=== PATIENT | male | born 1955 | race Caucasian/White ===

== ENCOUNTER 2018-05-22 15:44 | Outpatient (REF) | payer BC, SELFPAY ==
[2018-05-22 20:52] LABS: Anion Gap 10.8 mmol/L (3-11); BUN 16 mg/dL (7-18); CO2 27.2 mmol/L (21.0-32.0); CREATININE 0.79 mg/dL (0.70-1.30); Calcium 8.8 mg/dL (8.5-10.1); Chloride 103 mmol/L (98-107); Glucose 85 mg/dL (70-100); Sodium 141 mmol/L (136-145)
[2018-05-24 10:02] LABS: PSA, Screening 0.5 ng/ml (0-4.5)
== END 2018-05-22 16:04 ==
LOC: NCHCN 15:44
PROVIDERS: PCP Family Medicine; Visit Provider Family Medicine
DX: Z00.00 Encounter for general adult medical examination without abnormal findings (principal); I10 Essential (primary) hypertension
CPT/HCPCS: 80048; 84153

== ENCOUNTER 2018-11-21 19:46 | Outpatient (REF) | payer MEDICARE, BC, SELFPAY ==
[2018-11-21 20:44] LABS: Anion Gap 8.6 mmol/L (3-11); BUN 14 mg/dL (7-18); CO2 29.4 mmol/L (21.0-32.0); CREATININE 0.82 mg/dL (0.70-1.30); Calcium 9.4 mg/dL (8.5-10.1); Calculated LDL 168 mg/dL; Chloride 102 mmol/L (98-107); Cholesterol 233 mg/dL (50-200); Glucose 90 mg/dL (70-100); HDL Cholesterol 47 mg/dL (40-60); Potassium 4.8 mmol/L (3.5-5.1); Sodium 140 mmol/L (136-145); Triglyceride 90 mg/dL (30-150)
== END 2018-11-21 20:06 ==
LOC: NCHCN 19:46
PROVIDERS: PCP Family Medicine; Visit Provider Physician Assistant Medical
DX: I10 Essential (primary) hypertension (principal)
CPT/HCPCS: 80048; 80061

== ENCOUNTER 2020-12-25 11:42 | Outpatient (REF) | payer MEDICARE, BC, SELFPAY ==
[2020-12-25 14:54] LABS: ALT 39 U/L (16-63); AST 19 U/L (15-37); Albumin 4.1 g/dL (3.4-5.0); Alkaline Phosphatase 59 U/L (46-116); Anion Gap 9.8 mmol/L (3-11); BUN 16 mg/dL (7-18); CO2 27.2 mmol/L (21.0-32.0); CREATININE 0.8 mg/dL (0.70-1.30); Calcium 8.7 mg/dL (8.5-10.1); Calculated LDL 142 mg/dL (<100); Chloride 103 mmol/L (98-107); Cholesterol 209 mg/dL (<200); Glucose 90 mg/dL (74-106); HDL Cholesterol 53 mg/dL (40-60); Potassium 3.7 mmol/L (3.5-5.1); Sodium 140 mmol/L (136-145); Total Protein 6.8 g/dL (6.4-8.2); Triglyceride 74 mg/dL (<150)
[2020-12-25 23:32] LABS: PSA, Screening 0.5 ng/mL (0.0-4.5)
== END 2020-12-25 11:43 | disposition home or self-care (01) ==
LOC: NCHCN 11:42
PROVIDERS: PCP Family Medicine; Visit Provider Family Medicine
DX: I10 Essential (primary) hypertension (principal); Z12.5 Encounter for screening for malignant neoplasm of prostate; Z80.42 Family history of malignant neoplasm of prostate
CPT/HCPCS: 80053; 80061; 84153

== ENCOUNTER → 2022-08-04 11:15 | Outpatient (BNVA) | payer MEDICARE, BC, SELFPAY | PROVIDERS: PCP Family Medicine; Referring Provider Family Medicine; Visit Provider Physical Therapy Assistant | DX: Z12.11 Encounter for screening for malignant neoplasm of colon (principal); Z80.0 Family history of malignant neoplasm of digestive organs ==

== ENCOUNTER 2022-08-15 08:17 | Day surgery (SDC) | payer MEDICARE, BC, SELFPAY ==
--- NOTE | 2022-08-14 18:22 | W.PM.DSUDISC ---
Date of service: 08/15/22 Time of Service: 10:41 Discharge Plan Disposition Patient Disposition: Home Condition: Good Discharge Details Reason For Visit: Screening colonoscopy Attending Provider: Kenn Diaz Primary Care Provider: Farida Schuler V Home Meds and New Rx's Prescriptions: Continued losartan-hydrochlorothiazide 50-12.5 mg tablet 1 tab PO DAILY aspirin [Adult Aspirin Regimen] 81 mg tablet,delayed release (DR/EC) 81 mg PO DAILY saw palmetto 160 mg capsule 160 mg PO BID Rx Instructions: give with meal/snack goimzjdzdoyv-ksusqxnm-lqnfsp Tablet 1 tab PO DAILY rosuvastatin 5 mg tablet 5 mg PO DAILY Discontinued bisacodyl [Dulcolax (bisacodyl)] 5 mg tablet,delayed release (DR/EC) 5 mg PO ONCE Qty: 4 0RF Rx Instructions: Take per colonoscopy instructions provided by ordering providers office polyethylene glycol 3350 17 gram/dose powder 17 g PO ONCE Qty: 238 0RF Rx Instructions: Take per colonoscopy instructions provided by ordering providers office Discharge Instructions Instructions: Colorectal Polyps (GEN) Additional Instructions: Logan, we were able to complete your colonoscopy today without any difficulty. I did find a rectal polyp. It was quite small. I removed it completely. I will notify you with my final recommendations when I have the pathology report. 1. If tolerated, consume a soft, low fiber diet for 1-2 days. 2. Do not drive, drink alcohol, operate machinery, make critical decisions, or do activities that require coordination or balance for 24 hours. 3. Because air was put into your colon during the procedure, expelling air from your rectum (passing gas or farting) is normal. 4. You may not have a bowel movement for 1-3 days because of the colonoscopy prep. This is normal. 5. Go directly to the emergency room if you notice any of the following: Develop chills (warm to touch), or if you have a thermometer and your temperature is above 101 Difficulty breathing or difficultly swallowing Persistent vomiting Severe abdominal pain, other than gas cramps Severe chest pain Black, tarry stools Any bleeding ? exceeding one tablespoon 6. Call your physician if the site where your intravenous was started becomes red, swollen, painful, and warm to touch. 7. Your physician has reviewed your pre-procedure medications. Please continue to take those medications as previously ordered. You will be given specific information/education regarding any changes to your medications before leaving. Activity:: Activity as Tolerated Diet:: As Tolerated Discharge Orders Discharge Orders: Discharge Order (Routine); Ordered 08/14/22 Ordered By: Kenn Diaz DS: Diagnosis Discharge Diagnosis (1) Screening for colon cancer: Status: Acute Asessment and Plan: Follow-up on polypectomy results; with family history, recommend screening at the very least at 5-year intervals
--- NOTE | 2022-08-14 18:24 | W.COLOREPORT ---
Date of service: 08/15/22 Time of Service: 10:42 Colonoscopy Report Date of procedure: 08/15/22 Pre-op diagnosis general: screening colonoscopy Post-op diagnosis procedure note: other (Rectal polyp) Procedure: Colonoscopy with polypectomy Surgeon: Kenn Diaz Anesthesia Type: General:No Airway Estimated blood loss (mL): 5 Pathology: other (Rectal polyp) Complications: None Disposition: same day Indications: Logan is 67 years old. He needs his next screening colonoscopy Prep: Miralax/Dulcolax Procedure Start Time: 10:21 Procedure End Time: 10:38 Retraction Time: 8 Findings: Rectal polyp Procedure Description: After the induction of monitored anesthetic care, and with the patient in left lateral decubitus position, I began by performing an external anorectal exam.? Perineum and skin were normal, as was the anal verge.? There was no evidence of external hemorrhoids.? Next, I performed a digital rectal exam.? I did not appreciate any abnormal findings.? Next, I advanced a colonoscope into the rectal vault.? I performed retroflexion.? This appeared normal.? I did see one 0.25 cm sessile polyp within the rectum. I removed it with cold forcep polypectomy. There was minimal bleeding. Using insufflation, I then advanced the colonoscope beyond the rectal folds and into the sigmoid colon before advancing towards the cecum.? The quality of the prep was excellent.? The scope was noted to be in the cecum by identification of the ileocecal valve and appendiceal orifice.? I then began withdrawing the colonoscope using repeated irrigation as necessary for full evaluation of the colonic mucosa. ?Once the scope was withdrawn to the level of the rectum, great care was taken to examine portions of the rectal folds.? Finally, the scope was withdrawn and the patient was brought to the same-day surgery recovery unit as the anesthetic wore off. ?The findings and instructions were shared with the patient prior to discharge.
[2022-08-15 08:36] VITALS: BP 158/91; PULSE 72; RESP 16; TEMP 36.4; O2SAT 97
[2022-08-15] MEDS: Lactated Ringers 1,000 ML 80 ML IV (08:54)
--- NOTE | 2022-08-15 10:08 | W.ANESPRE ---
General Info Date of Service Date Performed: 08/15/22 Height: 5 ft 9 in Weight: 99.9 kg Body Mass Index (BMI): 32.5 Surgical Procedure: Operation Date: 08/15/22 10:35 Proposed Procedure Side Surgeon p Colonoscopy Kenn Diaz MD Pre-Op Diagnosis Post-Op Diagnosis Screening colonoscopy Meds Allergies and Home Medications Allergies Allergy/AdvReac Type Severity Reaction Status Date / Time Penicillins Allergy Severe Anaphylaxsi Unverified 08/15/22 08:56 s Home Medication Medication Instructions Recorded aspirin 81 mg tablet,delayed 81 mg PO DAILY 01/20/22 release (Adult Aspirin Regimen) cpdztakztxen-bjekuhbh-ptlxtx tablet 1 tab PO DAILY 01/20/22 rosuvastatin 5 mg tablet 5 mg PO DAILY 01/20/22 saw palmetto 160 mg capsule 160 mg PO BID 01/20/22 losartan 50 mg-hydrochlorothiazide 1 tab PO DAILY 08/04/22 12.5 mg tablet Current Visit Medications: Current Medications Generic Name Dose Route Start Last Admin Trade Name Freq PRN Reason Stop Dose Admin Hyoscyamine Sulfate 0.125 mg 08/14/22 18:30 Hyoscyamine 0.125 Mg Sl/Oral/Chew SL 09/13/22 18:29 DIRECTED PRN Ringer's Solution 1,000 mls @ 80 mls/hr 08/15/22 06:00 08/15/22 08:54 IV 09/11/22 23:59 80 mls/hr INFUSION H[facility]ILTON Administration IV Miscellaneous Supplies 1 each 08/15/22 06:00 Iv Access IV 09/11/22 23:59 DIRECTED H[place]ILTON Ondansetron HCl 4 mg 08/14/22 18:30 Ondansetron 4 Mg/2 Ml Vial IVP 09/13/22 18:29 Q4H PRN PRN Nausea / Vomiting Sodium Chloride 0 ml 08/15/22 06:00 Normal Saline Flush 10 Ml Syr IV 09/11/22 23:59 PRN PRN Sodium Chloride 0 ml 08/15/22 06:00 Normal Saline 10 Ml Vial IJ 09/11/22 23:59 DIRECTED PRN Sterile Water 0 ml 08/15/22 06:00 Water,Injection,Sterile 10 Ml Vial IJ 09/11/22 23:59 DIRECTED PRN PFSH Active Problems Active Problems: Problem Status Onset Code Hypertension I10 Onychomycosis B35.1 Family history of colon cancer Z80.0 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 Hearing deficit H91.90 Screening for colon cancer Z12.11 Medical History Medical History Family history of prostate cancer Surgical History Surgical History Dupuytren's contrature repair Tobacco Smoking/Tobacco Use Status: Never Alcohol Alcohol Intake: current Alcohol intake frequency: a few times a month Substance Use Substance use type: does not use Vital Signs and Lab Results Vital Signs Most Recent Vital Signs in EMR: Most Recent Vital Signs Temp Pulse Resp BP Pulse Ox 36.4 C L 72 16 158/91 H 97 08/15/22 08:36 08/15/22 08:36 08/15/22 08:36 08/15/22 08:36 08/15/22 08:36 Lab Results Blood Type / Crossmatch: No Data to Display Complete Blood Count: No Data to Display Complete Metabolic Panel: No Data to Display Liver Function Panel: No Data to Display Coagulation Panel: No Data to Display Cardiac Panel: No Data to Display Arterial Blood Gas: No Data to Display Venous Blood Gas: No Data to Display Pancreas Panel: No Data to Display Thyroid Panel: No Data to Display Infectious Disease: No Data to Display Blood Cultures: No Data to Display Toxicology Panel: No Data to Display Anesthesia Assessment and Plan Anesthesia History Personal History: No History of Anesthesia Complications Family History: No Family History of Anesthesia Complications Exercise Tolerance Exercise Tolerance: Metabolic Equivalents>4 Pertinent Negatives Pertinent Negatives: No Symptoms of GERD, No Major Cardiovascular Symptoms or Complaints, No Major Pulmonary Symptoms or Complaints and No History of CVA/TIA Cardiac & Pulmonary Exam Cardiac Exam: Normal S1/S2 Heart Sounds Pulmonary Exam: Clear Bilateral Breath Sounds Implantable Cardiac Device Does patient have a Pacemaker or an ICD?: No Airway Exam Known Difficult Airway: No Mallampati Class: 2 Mouth Opening: Normal (> 3cm) Thyromental Distance: Greater than 3 cm Facial Hair: Full [place] Neck Range of Motion: Full ROM Neck Circumference: Normal Teeth Condition: Removable Dentures/Plates Upper, Removable Dentures/Plates Lower and Edentulous ASA Classification ASA Score: ASA 2 Emergency Case?: No NPO Status NPO Status: NPO Clears >2 hours, Solids >8 hours Anesthesia Plan Resuscitation Status: Full Code Anesthesia Technique: General Anesthesia Airway Planned: Natural Airway Monitors Used: Standard Monitors
[2022-08-15 10:09] VITALS: BMI 32.5
--- NOTE | 2022-08-15 10:25 | BOWEL_PTH ---
PATIENT: Logan Luciano LOC: [facility] U#:[id number] AGE/SX: 67/M ROOM: RE08/15/[address]: Kenn Diaz MD : 1955 BED: DIS: 08/15/2022 SPEC #: [id number] RECD: 08/15/22 13:12 STATUS: BALDEMAR RE #: [id number] VALENTIN: 08/15/22 10:[address]: Kenn Diaz DEPT: Surgical Specimen RECD BY: Amanda Hayes ENTERED: 08/15/22 13:12 SP TYPE: Bowel OTHR DR: Farida Schuler V Tissues: 1 - BIOPSY BOWEL Procedures: GROSS AND MICRO LEVEL 4 Comments: [id number]
[2022-08-15 10:46] VITALS: BP 133/79; PULSE 66; RESP 17; TEMP 36.5; O2SAT 96
[2022-08-15 11:16] VITALS: BP 126/81; PULSE 67; RESP 17; TEMP 36.6; O2SAT 95
--- NOTE | 2022-08-15 11:35 | W.ANESPOSTOP ---
Postoperative Evaluation Date, Time and Location Date Performed: 08/15/22 Time Performed: 11:35 Patient Location: Day Surgery Unit Vital Signs Most Recent Imported Vital Signs: Most Recent Vital Signs Temp Pulse Resp BP Pulse Ox 36.6 C 67 17 126/81 95 08/15/22 11:16 08/15/22 11:16 08/15/22 11:16 08/15/22 11:16 08/15/22 11:16 Pain Score Most Recent Pain Score: Most Recent Pain Score Pain Level 0 08/15/22 11:16 Assessment Mental Status: Awake (Alert & Oriented to Patient Baseline) Airway and Respiratory Function: Patent airway with normal (patient baseline) respiratory exam Cardiovascular Function: Hemodynamically Stable Hydration Status: Adequately Hydrated Nausea & Vomiting: No Nausea or Vomiting Pain: Pt. Denies Any Pain Peripheral Nerve Block: Patient did not receive a nerve block Postoperative Comments:: seen earlier and doing well. appropriate for discharge
== END 2022-08-15 11:20 | disposition home or self-care (01) ==
PROVIDERS: PCP Family Medicine; Visit Provider Surgery
PROC: 0DJD8ZZ Inspection of Lower Intestinal Tract, Via Natural or Artificial Opening Endoscopic (ICD-10-PCS; CPT 45378; principal; 2022-08-15 10:30)
DX: Z12.11 Encounter for screening for malignant neoplasm of colon (principal); K62.1 Rectal polyp
CPT/HCPCS: 45380; 88305

== ENCOUNTER 2024-12-13 15:44 | Outpatient (REF) | payer MEDICARE, BC, SELFPAY ==
[2024-12-13 19:55] LABS: ALT 36 U/L (16-63); AST 22 U/L (15-37); Albumin 4.3 g/dL (3.4-5.0); Alkaline Phosphatase 76 U/L (46-116); Anion Gap 12.9 mmol/L (3-11); BUN 16 mg/dL (7-18); Bilirubin, Total 1.2 mg/dL (0.2-1.0); CO2 27.1 mmol/L (21.0-32.0); Calcium 9.2 mg/dL (8.5-10.1); Calculated LDL 189 mg/dL (<100); Chloride 99 mmol/L (98-107); Cholesterol 258 mg/dL (<200); Estimated GFR 98.51 (mL/min/1.73m2); Glucose 86 mg/dL (74-106); HDL Cholesterol 56 mg/dL (>or=40); Potassium 3.8 mmol/L (3.5-5.1); Sodium 139 mmol/L (136-145); Total Protein 7.3 g/dL (6.4-8.2); Triglyceride 68 mg/dL (<150)
[2024-12-13 20:48] LABS: Hemoglobin A1C 5.3 % (<5.7)
[2024-12-16 10:16] LABS: PSA, Screening 0.7 ng/mL (<=6.5)
== END 2024-12-13 15:45 | disposition home or self-care (01) ==
LOC: NCHCN 15:44
PROVIDERS: PCP Family Medicine; Visit Provider Family Medicine
DX: I10 Essential (primary) hypertension (principal); Z12.5 Encounter for screening for malignant neoplasm of prostate; Z13.1 Encounter for screening for diabetes mellitus
CPT/HCPCS: 80053; 80061; 84153; 83036